=== PATIENT | female | born 1940 ===

== ENCOUNTER 2024-03-23 19:29 | Emergency (ER) | payer MEDICARE, SELFPAY ==
[2024-03-23 19:35] VITALS: BP 125/59; PULSE 75; RESP 15; TEMP 36.2; O2SAT 100
[2024-03-23 22:15] VITALS: BP 124/56; PULSE 83; RESP 15; TEMP 36.4; O2SAT 97
[2024-03-23 23:40] VITALS: BP 133/69; PULSE 73; RESP 25; TEMP 36.8; O2SAT 98
[2024-03-24] MEDS: Please add drug allergy info to patient profile. 1 EACH XX (00:19)
[2024-03-24] MEDS: TETANUS,DIPHTHERIA,AC PERTUSSIS ADULT (0.5 ML) BOOSTRIX IM (00:19)
--- NOTE | 2024-03-24 00:38 | ED.WOUNDLAC ---
HPI - Wound/Laceration General Chief Complaint: Wound/Laceration Stated Complaint: wound Time Seen by Provider: 03/24/24 00:03 History of Present Illness HPI narrative: 84-year-old female presents to the ED from [facility] with daughter at bedside for a skin tear to her right lower extremity. Patient has dementia unable to provide much history. History is obtained by daughter at bedside. States the patient was attempting to transfer from her wheelchair to her bed when she cut her leg on the wheelchair. last Tdap unknown. Daughter at bedside is POA. Related Data Allergies Allergy/AdvReac Type Severity Reaction Status Date / Time Penicillins Allergy Itching Verified 03/24/24 00:20 Review of Systems Review of Systems: All systems reviewed & are unremarkable except as noted in HPI and below Exam Narrative: GENERAL: Well-appearing, well-nourished, and in no acute distress. HEAD: Normocephalic, atraumatic. EYES: EOMI. ENT: Nares clear, no rhinorrhea or epistaxis. Mucous membranes moist. NECK: Supple. CHEST: Clear to auscultation. No respiratory distress. HEART: Regular rate and rhythm. No murmur heard. Normal peripheral pulses. EXTREMITIES: Normal range of motion. No edema. SKIN: 4 cm superficial crescent-shaped laceration to the right lateral aspect of the tibia, bleeding is controlled. No deep structures or foreign bodies visualized. Extremity pink, warm and dry. NEURO: No focal deficits. Alert and oriented x2 Course Vital Signs Vital signs: Vital Signs Temperature 97.2 F L 03/23/24 19:35 Pulse Rate 75 03/23/24 19:35 Respiratory Rate 15 03/23/24 19:35 Blood Pressure 125/59 L 03/23/24 19:35 Pulse Oximetry 100 03/23/24 19:35 Oxygen Delivery Room Air 03/23/24 19:35 Temperature 98.3 F 03/23/24 23:40 Pulse Rate 73 03/23/24 23:40 Respiratory Rate 25 H 03/23/24 23:40 Blood Pressure 133/69 03/23/24 23:40 Pulse Oximetry 98 03/23/24 23:40 Oxygen Delivery Room Air 03/23/24 19:35 Procedures Laceration Laceration 1: Date: 03/24/24 Time: 00:41 Site: lower extremity Side (If applicable): right Size (cm): 4 Description: irregular Depth: simple, single layer Pre-repair: wound explored, irrigated and irrigated extensively ====== Skin Level ====== Skin layer closed with: steri strips ====== Subcutaneous Layer ====== ====== Muscle Layer ====== ====== Tendon Layer ====== MDM - Wound/Laceration MDM Narrative Medical decision making narrative: 84-year-old female presents to the ED via EMS from [facility] with daughter at bedside for skin tear to her right lower extremity. See HPI for further history. Vitals are stable. Exam is significant for a 4 cm crescent shaped superficial laceration to the lateral aspect of her right tibia. Bleeding controlled. There is no deep structures or foreign bodies visualized. No bony tenderness. Laceration cleansed with normal saline and closed with Steri-Strips without complications. Tdap updated. Encouraged follow-up with PCP and discuss strict ED return precautions. They are agreeable with the plan verbalized understanding. Discharged in stable condition Discharge Plan Discharge Clinical Impression: Laceration Patient Disposition: Home, Self-Care Condition: Stable Instructions: Antibiotic Form, Laceration (ED), Steristrips (ED) Additional Instructions: the wound was closed with Steri-Strips. These will follow-up in a few days. Please keep the area clean and dry. Follow-up with PCP in 1 week. Return to the emergency department if you develop surrounding redness, drainage, fever or other concerning symptoms. Follow-up/Referrals: Grecia,Leland Hanson MD [Primary Care Provider] -
== END 2024-03-24 01:05 | disposition home or self-care (01) ==
PROVIDERS: Emergency Provider Physician Assistant; PCP Family Medicine
DX: S81.811A Laceration without foreign body, right lower leg, initial encounter (principal); W45.8XXA Other foreign body or object entering through skin, initial encounter; F03.90 Unspecified dementia, unspecified severity, without behavioral disturbance, psychotic disturbance, mood disturbance, and anxiety; Z23 Encounter for immunization
CPT/HCPCS: 90471; 90715; 99282